=== PATIENT | male | born 2000 | race African-American/Black ===

== ENCOUNTER 2019-07-13 10:55 | Emergency (ER) | payer OTHER ==
[~2019-07-13] VITALS: Ht 180.3 cm; Wt 70.3 kg
[~2019-07-13 10:55] MED LIST: NOHOMEMEDICATIONS
[2019-07-13 11:16] LABS: URINE BILIRUBIN NEGATIVE (Negative); URINE BLOOD NEGATIVE (Negative); URINE CLARITY CLEAR; URINE COLOR YELLOW; URINE GLUCOSE-RANDOM* NEGATIVE (Negative); URINE KETONES NEGATIVE (Negative); URINE LEUKOCYTES NEGATIVE (Negative); URINE NITRITE NEGATIVE (Negative); URINE PROTEIN (DIPSTICK) NEGATIVE (Negative); URINE SPECIFIC GRAVITY 1.015 (1.005-1.035); URINE UROBILINOGEN 0.2 E.U./dl (0.2-1.0)
[2019-07-13 11:24] LABS: BASOPHILS 0.6 % (0.0-2.0); EOSINOPHILS 1.5 % (0.0-3.0); HEMATOCRIT 50.8 % (42.0-52.0); HEMOGLOBIN 17.2 gm/dL (14.0-18.0); LYMPHOCYTES 40.1 % (24.0-44.0); MCH 29.4 pg (26.0-34.0); MCHC 33.8 g/dL (28.0-37.0); MONOCYTES 10.1 % (1.0-8.0); PLATELET COUNT 214 thou/uL (150-400); POLYS 47.7 % (36.0-66.0); RBC 5.84 mil/uL (4.50-6.00); RDW 13.7 % (10.5-14.5); WBC 4.1 thou/uL (4.0-11.0)
[2019-07-13 11:31] LABS: CALCIUM 9.5 mg/dL (8.5-10.1); CREATININE 1.1 mg/dL (0.7-1.3)
[2019-07-13 11:33] LABS: POTASSIUM 4.5 mmol/L (3.5-5.1)
[2019-07-13 11:37] LABS: ALBUMIN 4.6 g/dL (3.4-5.0); TOTAL BILIRUBIN 0.9 mg/dL (<0.1-1.0); TOTAL PROTEIN 8.6 g/dL (6.4-8.2)
[2019-07-13 12:45] VITALS: BP 132/70
[2019-07-13] MEDS ORDERED: MECLIZINE HCL25 MG PO (12:50)
--- NOTE | 2019-07-13 17:31 | EKG ---
[address] [address] ELECTROCARDIOGRAM REPORT Name: MENDY VILLAGOMEZ Room #: [facility]#: [id number] Admission: 07/13/19 Attend Phys: Discharge: 07/13/19 Date of : 89 Report #: [id number] THIS REPORT FOR: //name// [facility] ED Test Date: 2019-07-13 Test Time: 11:14:39 Pat Name: MENDY VILLAGOMEZ Department: Room: Gender: M Core Filer[facility] : 2000 Requested By: Hilda Reilly Order Number: [id number] MD: Julio Cesar Diez Measurements Intervals [place] Rate: 57 P: 74 ND: 136 QRS: 79 QRSD: 108 T: 51 QT: 442 QTc: 431 Interpretive Statements Sinus bradycardia Otherwise normal tracing Compared to ECG 04/23/2013 11:47:49 No significant change was found Electronically Signed On 07-13-2019 17:31:13 CDT by Julio Cesar Diez [email or web address] <ELECTRONICALLY SIGNED> By: Julio Cesar Diez MD, [facility] 07/13/19 1731 1114 1114 Julio Cesar Diez MD, [facility] /EPI
== END 2019-07-13 12:45 | disposition home or self-care (01) ==
LOC: ER 10:55
PROVIDERS: Emergency Medicine
DX: R42 Dizziness and giddiness (principal); R11.2 Nausea with vomiting, unspecified